=== PATIENT | male | born 1985 | race Caucasian/White ===

== ENCOUNTER 2016-12-06 08:23 | Emergency (ER) | payer MEDICAID, OTHER ==
[~2016-12-06] VITALS: Ht 167.6 cm; Wt 80.5 kg
[2016-12-06 08:30] VITALS: Ht 167.6 cm; Wt 80.5 kg
[2016-12-06] MEDS ORDERED: OLAN5TAB5 PO (09:15)
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
[2016-12-06 09:30] VITALS: BP 134/65; PULSE 70; RESP 17; TEMP 98.1
[2016-12-06] MEDS ORDERED: LORAZEPAM 1 MG TAB PO ONE (09:30)
[2016-12-06] MEDS ORDERED: ZIPRASIDONE 20 MG CAP PO ONE (09:30)
== END 2016-12-06 09:56 | disposition home or self-care (01) ==
LOC: E/R 08:23
DX: F22 Delusional disorders (principal); F17.210 Nicotine dependence, cigarettes, uncomplicated
CPT/HCPCS: Z7502; Z7610; 99283